=== PATIENT | male | born 1945 | race Caucasian/White ===

== ENCOUNTER 2022-07-20 16:31 | Emergency (ER) | payer OTHER ==
[~2022-07-20] VITALS: Ht 182.9 cm; Wt 91.2 kg
[2022-07-20] MEDS ORDERED: NORVASC10 MG PO (19:25)
[2022-07-20] MEDS ORDERED: VENTOLIN HFA18 GM INH (19:26)
[2022-07-20] MEDS ORDERED: CHLORTHALIDONE25 MG PO (19:26)
[2022-07-20] MEDS ORDERED: PROTONIX40 M1 PO (19:27)
[2022-07-20] MEDS ORDERED: LASIX20 MG PO (19:27)
[2022-07-20] MEDS ORDERED: FAMOTIDINE20 MG PO (19:27)
[2022-07-20] MEDS ORDERED: OMEPRAZOLE20 MG PO (19:28)
[2022-07-20] MEDS ORDERED: SYMBICORT 16010.2 GM INH (19:28)
[2022-07-20] MEDS ORDERED: DULERA 100 MCG/13 GM INH (19:29)
[2022-07-20] MEDS ORDERED: SPIRIVA RESPIMAT4 G1 INH (19:29)
== END 2022-07-20 20:22 | disposition home or self-care (01) ==
LOC: ED 16:31
DX: S61.512A Laceration without foreign body of left wrist, initial encounter (principal); S81.812A Laceration without foreign body, left lower leg, initial encounter; Z23 Encounter for immunization; W26.8XXA Contact with other sharp object(s), not elsewhere classified, initial encounter; I10 Essential (primary) hypertension; J45.909 Unspecified asthma, uncomplicated; K21.9 Gastro-esophageal reflux disease without esophagitis; Z88.0 Allergy status to penicillin; Z79.899 Other long term (current) drug therapy
CPT/HCPCS: 12002; 90471; 90715; 99282-25

== ENCOUNTER 2025-01-01 07:00 | Day surgery (SDC) | payer OTHER ==
[2024-12-25 09:26] VITALS: BP 115/80
[2025-01-01] VITALS (11 sets, daily range): BP systolic 100–110; BP diastolic 65–73
[~2025-01-01] VITALS: Ht 182.9 cm; Wt 88.2 kg
[~2025-01-01 07:00] MED LIST: ALDACTONE25 MG PO; CEFAZOLIN SODIUM 2 GM/20 ML SYR IV SCH; CHLORTHALIDONE25 MG PO; COMBIVENT RESPIM4 GM INH; DIGOXIN125 MCG PO; DULERA 100 MCG/13 GM INH; ELIQUIS5 MG PO; ENTRESTO 24 MG1 EACH PO; FAMOTIDINE20 MG PO; FLOMAX0.4 MG PO; FLONASE ALLERG9.9 ML NAS; IBLOOD GLUCOSE TEST STRIP 1 EA TEST VI PRN; JARDIANCE10 MG PO; KLOR-CON 1010 MEQ PO; LACTATED RINGER'S 1,000 ML IV SCH; LASIX20 MG PO; LASIX40 MG PO; LIDOCAINE HCL 1% 5 ML SDV INJ ONE; METOPROLOL SUC100 MG PO; NORVASC10 MG PO; OMEPRAZOLE20 MG PO; PLAVIX75 MG PO; PROTONIX40 M1 PO; PROTONIX40 MG PO; REFRESH TEARS15 ML OU; SPIRIVA RESPIMAT4 G1 INH; SYMBICORT 16010.2 GM INH; VENTOLIN HFA18 GM INH; VITAMIN B12500 MCG PO; VITAMIN D350 MC3 PO; ZYRTEC10 MG PO; [UNRECOGNIZED DRUG - OTHER] PO
[2025-01-01] MEDS ORDERED: LIPITOR20 MG PO (07:34)
[2025-01-01] MEDS ORDERED: diphenhydrAMINE HCL 25 MG CAP PO PRN (07:45)
[2025-01-01] MEDS ORDERED: LACTATED RINGER'S 1,000 ML IV SCH (07:45)
[2025-01-01] MEDS ORDERED: ondansetron HCL 4 MG/2 ML VIAL IV PRN (07:45)
[2025-01-01] MEDS ORDERED: MORPHINE SULFATE 4 MG/ML VIAL IV PRN (07:45)
[2025-01-01] MEDS ORDERED: TRAMADOL HCL 50 MG TAB PO PRN (07:45)
[2025-01-01] MEDS ORDERED: BUPIVACAINE 0.75% IN DEXTROSE 2 ML AMP ONE (08:56)
[2025-01-01] MEDS ORDERED: SPIRONOLACTONE 25 MG TAB PO SCH (09:00)
[2025-01-01] MEDS ORDERED: PANTOPRAZOLE SODIUM 40 MG TABEC PO SCH (09:00)
[2025-01-01] MEDS ORDERED: METOPROLOL SUCCINATE 100 MG TABCR PO SCH (09:00)
[2025-01-01] MEDS ORDERED: DIGOXIN 125 MCG TAB PO SCH (09:00)
[2025-01-01] MEDS ORDERED: LIDOCAINE HCL 2% 5 ML SDV ONE (09:07)
[2025-01-01] MEDS ORDERED: propofoL 200 MG/20 ML VIAL ONE (09:20)
[2025-01-01] MEDS ORDERED: PHENYLEPHRINE HCL 10 MG/ML VIAL ONE (10:09)
--- NOTE | 2025-01-01 11:22 | NUR ---
REPORT RECEIVED FROM PENG LANZA IN THE ROOM. FIRST SET OF VITAL SIGNS TAKEN AND DOCUMENTED IN THE CHART.
--- NOTE | 2025-01-01 11:30 | NUR ---
PATIENT IS LYING IN BED WITH HOB ELEVATED. PATIENT IS SITTING IN THE CHAIR AT BEDSIDE. FULL ASSESSMENT COMPLETE AND DOCUMENTED IN THE CHART. PATIENT IS ALERT AND ORIENTED TIMES FOUR. PATIENT WITH A PACER/DEFIBRILATOR. IMAGE CONSULTANT STATED HE STOPED ELIQUIS ON 12/28/24. HEART TONES ARE IRREGULAR ON AUSCULTATION. BLE WITH DEPENDENT EDEMA NOTED. RADIAL PULSES ARE STRONG BILATERALLY. SENSATION INTACT WITH NO COMPLAINTS OF NUMBNESS OR TINGLING. PATIENT WITH CAPILLARY REFILL IN THE UPPER AND LOWER EXTREMITIES LESS THAN 3 SECONDS. PATIENT IS ON ROOM AIR WITH HIS PERSONAL CPAP IN THE ROOM. LUNG SOUNDS ARE CLEAR THROUGHOUT. PATIENT IS ON A REGULAR DIET AND BOWEL TONES ARE ACTIVE IN ALL FOUR QUADRANTS. PATIENT LAST BM 01/01/25. PATIENT WITH NO COMPLAINTS OF NAUSEA. CBI IS SHUT OFF. URINE IS LIGHT YELLOW. IV SITE IN THE R FOREARM IS A 20 GAUGE THAT WAS FLUSHED WITH 10 ML NORMAL SALINE. LR IS INFUSING AT 15 ML/HR. PATIENT WITH NO COMPLAINTS OF PAIN. PATIENT SKIN VERY FRAGILE WITH SMALL SCATTERED SCABS NOTED. PATIENT STATED NO FURTHER NEEDS AT THIS TIME. CALL LIGHT AND PERSONAL BELONGINGS ARE WITHIN REACH.
--- NOTE | 2025-01-01 11:41 | NUR ---
01/01/25 1141 Lauren Chapa 1035 PT ARRIVED IN PACU AWAKE WITH NO C/O'S. JOHN WITH CBI RUNNING AND CLEAR DRAINAGE PRESENT. 1045 GLASSES RETURNED TO PT. NO C/O'S. 1100 TALKING TO STAFF. 1122 TO ROOM 122. TRANSFERRED PT FROM STRETCHER TO BED WITH SLIDER SHEET AND 4 PERSON ASSIST. REPORT GIVEN TO RN.
--- NOTE | 2025-01-01 13:33 | NUR ---
ALERT AND ORIENTED IN ROOM. LIVES IN SINGLE LEVEL HOUSE WITH . HAS DME, BUT DOES NOT ELABORATE WHAT DME HE HAS WHEN ASKED. STATES HE DRIVES AT [place] BUT PLANS NOT TO DRIVE FOR A FEW DAYS SINCE HIS PROCEDURE TODAY. STATES HE HAS NO FINANCIAL CONCERNS, ABLE TO PAY FOR UTILITIES, FOOD AND MEDICATIONS WITHOUT DIFFICULTY. PLAN TO RETURN HOME TOMORROW AND FOLLOW-UP WITH DR. RIOS AT SCHEDULED TIME. NO CM NEEDS.
--- NOTE | 2025-01-01 14:30 | NUR ---
FINAL SET OF POST OP VITAL SIGNS TAKEN AND DOCUMENTED IN THE CHART. PATIENT STATED PAIN IS A 7/10 IN THE LOWER ABDOMINAL AREA. PATIENT IS NOT ASKING FOR PAIN MEDICATION AT THIS TIME. PATIENT URINE IN THE JOHN CATHETER DRAINAGE BAG WITH LIGHT YELLOW URINE. PATIENT STATED NO FURTHER NEEDS AT THIS TIME. CALL LIGHT AND PERSONAL BELONGINGS ARE WITHIN REACH.
[2025-01-01] MEDS ORDERED: MAGNESIUM HYDROXIDE/AL HYDROX 30 ML CUP PO PRN (15:30)
--- NOTE | 2025-01-01 16:10 | NUR ---
PATIENT IS LYING IN BED WITH HOB ELEVATED. PATIENT WITH EYES OPEN AND RESPIRATIONS ARE EVEN AND UNLABORED. EYES ARE OPEN AND RESPIRATIONS ARE EVEN AND UNLABORED. TV IS ON. CALL LIGHT AND PERSONAL BELONGINGS ARE WITHIN REACH.
--- NOTE | 2025-01-01 17:42 | NUR ---
PATIENT IS LYING IN BED AND WATCHING TV. CBI REMAINS OFF. PATIENT IS SITTING IN THE RECLINER AT BEDSIDE. URINE IN JOHN CATHETER REAMINS LIGHT YELLOW IN COLOR. PATIENT WITH DINNER TRAY ON THE BEDSIDE TABLE. PATIENT ASKED WHAT HAPPENS WHEN HAVING TO HAVE A BOWEL MOVEMENT. PATIENT EDUCATED ON USING THE BEDPAN. PATIENT EXPRESSED UNDERSTANDING. PATIENT STATED NO FURTHER NEEDS AT THIS TIME. CALL LIGHT AND PERSONAL BELONGINGS WITHIN REACH.
--- NOTE | 2025-01-01 17:55 | NUR ---
medications reconciled using patient's med list and interview
--- NOTE | 2025-01-01 18:06 | NUR ---
CBI PORT ON THE [address] WAY JOHN IS PLUGGED. JOHN CARE COMPLETE. PATIENT DINNER TRAY REMAINS AT BEDSIDE. PATIENT IS SITTING IN THE RECLINER AT BEDSIDE. PATIENT AND FAMILY STATED NO FURTHER NEEDS AT THIS TIME. CALL LIGHT AND PERSONAL BELONGINGS ARE WITHIN REACH.
[2025-01-01] MEDS ORDERED: FUROSEMIDE 20 MG/2 ML VIAL IV ONE (19:00)
--- NOTE | 2025-01-01 19:21 | NUR ---
REPORT RECEIVED FROM DAY SHIFT RN. PT LYING IN BED ALERT AND ORIENTED. DENIES NEEDS. WHITE BOARD UPDATED. CALL LIGHT IN REACH.
--- NOTE | 2025-01-01 20:50 | NUR ---
EVENING ASSESSMENT COMPLETE. SCHEDULED MEDS ADMIN PER EMAR. PT REPORTS LOWER ABD PAIN. PRN FOR PAIN ADMIN. VS AND I&O OBTAINED. CBI REMAINS CLAMPED. URINE IN JOHN TUBING CLEAR YELLOW. NO BLOOD CLOTS NOTED. JOHN CARE DONE AND PT EDUCATION PROVIDED FOR HOME CARE. SCANT AMOUNT RED DRAINAGE NOTED FROM JOHN INSERTION SITE. SCD'S AND CPOX PLACED. PT DENIES QUESTIONS OR CONCERNS. BED ALARM FOR SAFETY. CALL LIGHT IN REACH.
[2025-01-01] MEDS ORDERED: FAMOTIDINE 20 MG/ 2 ML VIAL IV SCH (21:00)
[2025-01-01] MEDS ORDERED: ALBUTEROL INH SCH (21:00)
[2025-01-01] MEDS ORDERED: IPRATROPIUM INH SCH (21:00)
[2025-01-01] MEDS ORDERED: SACUBITRIL/VALSARTAN 1 EACH TABLET PO SCH ×2 (21:00)
[2025-01-01] MEDS ORDERED: MOMETASONE/FORMOTEROL 8.8 GM HFA.AER.AD INH SCH (21:00)
--- NOTE | 2025-01-01 23:32 | NUR ---
PT AWAKE IN BED WITH HOME CPAP IN PLACE. SpO2 LOW 90'S. HR 80'S. URINE IN JOHN TUBING REMAINS LIGHT YELLOW. CBI CLAMPED. ASSISTED TO REPOSITION. NO FURTHER NEEDS.
[2025-01-02 02:02] VITALS: BP 102/70
--- NOTE | 2025-01-02 02:12 | NUR ---
PT RESTING WITH EYES CLOSED. AWAKENS EASILY. VS AND I&O OBTAINED. PT REPORTS LOWER ABD PAIN 6/10. PRN FOR PAIN ADMIN. 2PA TO REPOSITION IN BED WITH PILLOW UNDER LEFT HIP. URINE IN JOHN TUBING LIGHT YELLOW. NO CLOTS NOTED. CBI REMAINS CLAMPED. NO FURTHER NEEDS. CALL LIGHT IN REACH.
[2025-01-02 02:14] VITALS: BP 102/70
--- NOTE | 2025-01-02 03:27 | NUR ---
PT RESTING IN BED WITH EYES CLOSED. RESPIRATIONS EVEN. CALL LIGHT IN REACH.
[2025-01-02 05:03] VITALS: BP 111/67
--- NOTE | 2025-01-02 05:14 | NUR ---
PT REPORTS THE URGE TO VOID. JOHN PATENT WITH CLEAR YELLOW URINE. JOHN FLUSHED WITH 10 ML NS. NO CLOTS NOTED. BLADDER SCANNED FOR <15ML. PT EDUCATION PROVIDED. VS AND I&O OBTAINED. ASSISTED PT TO REPOSITION IN BED. NO FURTHER NEEDS. CALL LIGHT INR EACH.
[2025-01-02] MEDS ORDERED: CEFTRIAXONE SODIUM 1 GM VIAL IV ONE (06:03)
[2025-01-02] MEDS ORDERED: CEFTRIAXONE SODIUM 1 GM in SODIUM CHLORIDE 0.9% 100 ML IV SCH (07:00)
--- NOTE | 2025-01-02 07:27 | NUR ---
REPORT RECEIVED FROM ANGELICA KHOURY
--- NOTE | 2025-01-02 08:02 | NUR ---
UR CLINICAL REVIEW: [facility]- PER [facility] REVIEW MEETS AMBULATORY CRITERIA FOR TURP WITH NEED FOR CBI [facility] EXTENDED STAY 01/01/25 @ 0737 NO AUTH REQUIRED PER [facility] GUIDELINES. RECORDS FAXED FOR REVIEW DISCHARGE TO HOME ANTICIPATED TODAY
[2025-01-02] MEDS ORDERED: CIPRO500 MG PO (08:23)
[2025-01-02] MEDS ORDERED: TRAMADOL HCL50 MG PO (08:26)
[2025-01-02 08:43] VITALS: BP 104/69
--- NOTE | 2025-01-02 09:41 | NUR ---
ALERT AND ORIENTED IN BED. AT BEDSIDE. PATIENT STATES HE IS GOING HOME TODAY AND HAS NO CM NEEDS. AGREES. PLAN TO DC TO HOME TODAY.
--- NOTE | 2025-01-03 12:01 | PATH ---
[facility] [address] [place], [place] [address] Signed SPECIMEN(S): A PROSTATE CHIPS SPECIMEN SOURCE: A. PROSTATE CHIPS CLINICAL HISTORY: BPH with LUTS; prostate cancer. FINAL PATHOLOGIC DIAGNOSIS: Prostate, transurethral resection: - Benign prostatic tissue with glandular and stromal hyperplasia BRP MICROSCOPIC EXAMINATION: Histologic sections of all submitted blocks are examined by light microscopy. These findings, together with the gross examination, support the pathologic diagnosis. GROSS DESCRIPTION: The specimen, labeled and designated "Shyla, W, " and designated on the requisition "prostate chips," is received in formalin is a marley g, 5.8 x 5.2 x 1.0 cm aggregate of pink-marley to flores rubbery soft tissue. The specimen is entirely submitted in (A1-A8). FB (under the direct supervision of a pathologist) The Gross Description was prepared using a voice recognition system. The report was reviewed for accuracy; however, sound-alike word errors, addition and/or deletions may occur. If there is any question about this report, please contact Client Services. ADDITIONAL NOTES: Immunohistochemical and/or in situ hybridization studies if performed in this case included appropriate positive controls that reacted as expected. This test was developed and its performance characteristics determined by [facility]. It has not been cleared or approved by the U.S. Food and Drug Administration. The FDA has determined that such clearance or approval is not necessary. This test is used for clinical purposes. It should not be regarded as investigational or for research. [facility] is certified under the Clinical Laboratory Improvement Amendments of 1988 (CLIA) as qualified to perform high complexity clinical laboratory testing. PATIENT NAME: CAROL COLBERT PATHOLOGY DATE OF : 41 REPORT #: [id number] PHYSICIAN: ASHLEY PATHOLOGY PCP: CASTRO CEBALLOS MD REPORT IS CONFIDENTIAL AND NOT TO BE RELEASED WITHOUT AUTHORIZATION [facility] [address] [place], [place] [address] Signed PERFORMING LABORATORY: Technical component was performed by [facility], [address] [place] [id number] (CLIA# [id number]). Professional interpretation was performed by [facility] [place] [address] (CLIA#: [id number]). Diagnostician: Agustin Fortune MD Pathologist Electronically Signed 01/03/2025 Copies: ~ PATIENT NAME: CAROL COLBERT PATHOLOGY DATE OF : 41 REPORT #: [id number] PHYSICIAN: ASHLEY GENAO PCP: CASTRO CEBALLOS MD REPORT IS CONFIDENTIAL AND NOT TO BE RELEASED WITHOUT AUTHORIZATION
== END 2025-01-02 10:42 | disposition home or self-care (01) ==
LOC: DS 07:00 → MS 11:11 → DS 01-02 10:42
PROVIDERS: ATTEND Urology
DX: N40.1 Benign prostatic hyperplasia with lower urinary tract symptoms (principal); N13.8 Other obstructive and reflux uropathy; R33.9 Retention of urine, unspecified; I25.10 Atherosclerotic heart disease of native coronary artery without angina pectoris; I48.91 Unspecified atrial fibrillation; N18.2 Chronic kidney disease, stage 2 (mild); I50.9 Heart failure, unspecified; K21.9 Gastro-esophageal reflux disease without esophagitis; Z95.5 Presence of coronary angioplasty implant and graft; Z79.01 Long term (current) use of anticoagulants; Z79.02 Long term (current) use of antithrombotics/antiplatelets; Z79.82 Long term (current) use of aspirin; Z79.899 Other long term (current) drug therapy
CPT/HCPCS: 00914; 51700; 88305; 94640; 96360; 96361; 96374; A9270; C1769; J0690; J0696; J2003; J2371; J2704; J7121

== ENCOUNTER 2025-01-11 05:53 | Day surgery (SDC) | payer OTHER ==
[~2025-01-11] VITALS: Ht 182.9 cm; Wt 89.1 kg
[~2025-01-11 05:53] MED LIST changes: -CEFAZOLIN SODIUM 2 GM/20 ML SYR IV SCH; +CIPRO500 MG PO; -IBLOOD GLUCOSE TEST STRIP 1 EA TEST VI PRN; -LACTATED RINGER'S 1,000 ML IV SCH; -LIDOCAINE HCL 1% 5 ML SDV INJ ONE; +LIPITOR20 MG PO; +MIDAZOLAM HCL 5 MG/5 ML VIAL IV PRN; +TRAMADOL HCL50 MG PO; +fentaNYL citrate 100 MCG/2 ML VIAL IV PRN
[2025-01-11 06:09] VITALS: BP 104/59
[2025-01-11] MEDS ORDERED: CEFAZOLIN SODIUM 2 GM/20 ML SYR IV SCH (07:00)
[2025-01-11] MEDS ORDERED: LACTATED RINGER'S 1,000 ML IV SCH (07:00)
[2025-01-11] MEDS ORDERED: IBLOOD GLUCOSE TEST STRIP 1 EA TEST VI PRN (07:00)
[2025-01-11] MEDS ORDERED: LIDOCAINE HCL 1% 5 ML SDV INJ ONE (07:00)
[2025-01-11] MEDS ORDERED: propofoL 200 MG/20 ML VIAL ONE (07:28)
[2025-01-11] MEDS ORDERED: LIDOCAINE HCL 2% 5 ML SDV ONE (07:28)
--- NOTE | 2025-01-11 07:59 | NUR ---
01/11/25 0759 Kika Durand 0750-PATIENT ARRIVED TO PACU ON 4L NC RR EVEN. NEIL SOCIAL WORK THERAPIST DOING JAW TILT TO MAINTAIN OPEN AIRWAY RN RESUMES. PATIENT SNORING. ABDOMEN SOFT. IVF INFUSING. PATIENT HAS BBB WITH PVCS. 0755-PATIENT STARTING TO BECOME REACTIVE OPENING EYES ABLE TO MAINTAIN AIRWAY IN OWN. 4L NC 98% RR EVEN.
[2025-01-11 08:21] VITALS: BP 121/89
--- NOTE | 2025-01-11 10:23 | OR ---
[facility] [address] [place], [place] [address] Signed DATE OF OPERATION: 01/11/2025 SURGEON: Edwina Jasmine MD PREOPERATIVE DIAGNOSES: 1. Small hiatal hernia. 2. 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 3. Mild gastritis. 4. GE junction at 42 cm. 5. Disrupted Hill repair from the remote past. POSTOPERATIVE DIAGNOSES: 1. Small hiatal hernia (43-40 cm). 2. Short-segment Mullen's esophagus (less than or equal to 2 cm). 3. Mild to moderate diffuse gastritis. PROCEDURE: Esophagogastroduodenoscopy with CLOtest and biopsies of antrum GE junction x3. ESTIMATED BLOOD LOSS: None. INDICATIONS: Apollo is an 79-year-old gentleman asked to see me for a followup upper endoscopy. He describes a small hiatal hernia with Mullen's esophagus without dysplasia. He had an upper endoscopy in April [address] Bedoya in [place], [place]. He describes a 2 cm segment of Mullen's esophagus with biopsies negative for dysplasia. He had gastric polyps from his proton pump inhibitor. The GE junction is at 42 cm. He had a very small 1 or 2 cm hiatal hernia. He said there was some gastritis. Of course, he was asked to follow up in three years. He had a similar study in 2018, most likely with Dr. Bedoya. The H pylori was negative. He talked about an upper endoscopy in 2014 with our [facility] in [place], [place]. Again, the Mullen's esophagus. He tells me that he had a Hill repair with Dr. Hickey in the remote past. Three years later, he was out jogging and he completely disrupted to Hill repair. He has had recurrent acid reflux. He found out that he was in atrial fibrillation with heart failure when he was sleeping and quite tired. His ejection fraction was clear down to 10% to 15%. He ended up with two cardiac stents in October 2023. His left ventricular ejection fraction is back up to 50%. He just had an echocardiogram and reviewed that with his cardiac provider Valentine Acosta, who is a nurse practitioner. Initially, he was on aspirin, Plavix, and Eliquis. Now he is only on the Eliquis. He also has sleep Electronically Signed By: EDWINA JASMINE MD 01/11/25 1023 PATIENT NAME: APOLLO COLBERT OPERATIVE REPORT DATE OF : 41 REPORT #: [id number] PHYSICIAN: EDWINA JASMINE MD PCP: CASTRO CEBALLOS MD REPORT IS CONFIDENTIAL AND NOT TO BE RELEASED WITHOUT AUTHORIZATION [facility] [address] [place], [place] [address] Signed apnea requiring a CPAP mask. He had his pacemaker defibrillator placed in April [address] Gil[address] Johnson[address]. Johnson saw him in July and said everything was going well. Oswaldo was able to go hunting with his grandson last fall. He said everything went well except he had some claudication in his legs. He said after his diuresis his legs are no longer swollen. He was asked to come see me as a local general surgeon for repeat upper endoscopy and biopsies for the Mullen's esophagus. I had met with Oswaldo in the office and reviewed the above findings with him. I gave him a pamphlet on upper endoscopy as well as Mullen's esophagus. He understands Mullen's esophagus increases the chance of esophageal cancer by 11 times. Consequently, those patients only come about every three years with biopsies. There is risk including, but not limited to gas bloating, crampy abdominal pain, bleeding, perforation requiring surgery, and missed diagnosis. Also because of his significant medical history, he needs monitored anesthesia care with propofol infusion. He understands he needs a ride home afterwards. He said that would be his . He had expressed understanding and wished to proceed. DESCRIPTION OF PROCEDURE: Oswaldo was taken into our endoscopy suite and placed in a supine semi-recumbent position. A bite block was utilized for the case. He was given monitored anesthesia care propofol infusion per our nurse forensic nurse. The adult gastroscope was introduced and advanced quite readily down out into the duodenum. The duodenum and pyloric bulb were unremarkable. His stomach showed mild to moderate diffuse gastritis. We took a biopsy of the antrum for CLOtest as well as pathologic review. No ulcerations. Upon retroflexion of scope I can see his hiatal hernia. It measured out roughly 43 back to 40 cm. It took a bit to see this short-segment Mullen's esophagus. It is probably less than 2 cm. We took three circumferential biopsies in this area. There was no distal esophagitis. No inflammatory changes around the Z-line. The middle and upper esophagus were unremarkable. After this, the gas was suctioned out and the gastroscope removed. Oswaldo tolerated the procedure quite well. RECOMMENDATIONS: I will see Oswaldo back in my office in 7 to 14 days to review his results. Edwina Jasmine MD ALB/MODL /[id number] Electronically Signed By: EDWINA JASMINE MD 01/11/25 1023 PATIENT NAME: APOLLO COLBERT OPERATIVE REPORT DATE OF : 41 REPORT #: [id number] PHYSICIAN: EDWINA JASMINE MD PCP: CASTRO CEBALLOS MD REPORT IS CONFIDENTIAL AND NOT TO BE RELEASED WITHOUT AUTHORIZATION [facility] [address] [place], [place] [address] Signed cc: Valentine Acosta, MD Castro Duenas MD Copies: EDWINA JASMINE MD, MICAIAH MATTHEW MD ~ Electronically Signed By: EDWINA JASMINE MD 01/11/25 1023 PATIENT NAME: APOLLO COLBERT OPERATIVE REPORT DATE OF : 41 REPORT #: [id number] PHYSICIAN: EDWINA JASMINE MD PCP: CASTRO CEBALLOS MD REPORT IS CONFIDENTIAL AND NOT TO BE RELEASED WITHOUT AUTHORIZATION
--- NOTE | 2025-01-12 10:41 | PATH ---
[facility] [address] [facility] [place], [place] [address] Signed SPECIMEN(S): A ANTRUM BIOPSY SPECIMEN(S): B GE JUNCTION SPECIMEN SOURCE: A. ANTRUM BIOPSY B. GE JUNCTION CLINICAL HISTORY: Pre-: Hiatal hernia with Mullen's esophagus. Post: Gastritis, SM hiatal hernia, Mullen's FINAL PATHOLOGIC DIAGNOSIS: A. Antrum, biopsy: - Minimal chronic antral gastritis with vascular congestion, negative for active inflammation or intestinal metaplasia. - No H. pylori bacteria are detected by HE stain. B. GE junction, biopsies: - Chronic reflux esophagogastritis with intestinal metaplasia, negative for dysplasia. AMB MICROSCOPIC EXAMINATION: Histologic sections of all submitted blocks are examined by light microscopy. These findings, together with the gross examination, support the pathologic diagnosis. GROSS DESCRIPTION: A. The specimen, labeled and designated "Shyla, Flip, antrum biopsy," is received in formalin and consists of one marley soft tissue fragment, 0.6 cm. Entirely submitted in (A1). B. The specimen, labeled and designated "Shyla, W, GE junction," is received in formalin and consists of four marley soft tissue fragments, ranging from 0.2-0.3 cm. Entirely submitted in (B1). AB (under the direct supervision of a pathologist) The Gross Description was prepared using a voice recognition system. The report was reviewed for accuracy; however, sound-alike word errors, addition and/or deletions may occur. If there is any question about this report, please contact Client Services. ADDITIONAL NOTES: Immunohistochemical and/or in situ hybridization studies if performed in this PATIENT NAME: CAROL COLBERT PATHOLOGY DATE OF : 41 REPORT #: [id number] PHYSICIAN: ASHLEY GENAO PCP: CASTRO CEBALLOS MD REPORT IS CONFIDENTIAL AND NOT TO BE RELEASED WITHOUT AUTHORIZATION [facility] [address] [place], [place] [address] Signed case included appropriate positive controls that reacted as expected. This test was developed and its performance characteristics determined by [facility]. It has not been cleared or approved by the U.S. Food and Drug Administration. The FDA has determined that such clearance or approval is not necessary. This test is used for clinical purposes. It should not be regarded as investigational or for research. [facility] [facility] is certified under the Clinical Laboratory Improvement Amendments of 1988 (CLIA) as qualified to perform high complexity clinical laboratory testing. PERFORMING LABORATORY: Technical component was performed by [facility], [address] [place] [address] (CLIA# [id number]). Professional interpretation was performed by [facility] [address] [place] [id number] Diagnostician: Danyell Guzman MD Pathologist Electronically Signed 01/12/2025 Copies: ~ PATIENT NAME: CAROL COLBERT PATHOLOGY DATE OF : 41 REPORT #: [id number] PHYSICIAN: ASHLEY GENAO PCP: CASTRO CEBALLOS MD REPORT IS CONFIDENTIAL AND NOT TO BE RELEASED WITHOUT AUTHORIZATION
== END 2025-01-11 08:30 | disposition home or self-care (01) ==
LOC: DS 05:53
PROVIDERS: ATTEND Colon & Rectal Surgery
PROC: 0DB68ZX Excision of Stomach, Via Natural or Artificial Opening Endoscopic, Diagnostic (ICD-10-PCS; 2025-01-11)
PROC: 0DB48ZX Excision of Esophagogastric Junction, Via Natural or Artificial Opening Endoscopic, Diagnostic (ICD-10-PCS; principal; 2025-01-11 07:30)
DX: K29.50 Unspecified chronic gastritis without bleeding (principal); K44.9 Diaphragmatic hernia without obstruction or gangrene; K22.70 Barrett's esophagus without dysplasia; K21.9 Gastro-esophageal reflux disease without esophagitis; J45.909 Unspecified asthma, uncomplicated; I25.10 Atherosclerotic heart disease of native coronary artery without angina pectoris; I48.91 Unspecified atrial fibrillation; I50.9 Heart failure, unspecified; N18.2 Chronic kidney disease, stage 2 (mild); C61 Malignant neoplasm of prostate; F10.99 Alcohol use, unspecified with unspecified alcohol-induced disorder; G47.33 Obstructive sleep apnea (adult) (pediatric); Z99.89 Dependence on other enabling machines and devices; Z79.899 Other long term (current) drug therapy
CPT/HCPCS: 00731; 36415; 87077; 88305; J0690; J2003; J2704; J7121

== ENCOUNTER 2025-10-05 09:18 | Emergency (ER) | payer OTHER ==
[~2025-10-05] VITALS: Ht 182.9 cm; Wt 88.8 kg
--- OUTSIDE RECORDS SUMMARY | ~2025-10-05 | XMS | Continuity of Care Document ---
Demographics + + + | Address | [address] | | | [place] [address] | + + + | Preferred Language | Unknown | + + + | Marital Status | | + + + | Pentecostalism Affiliation | Unknown | + + + | Race | White | + + + | Ethnic Group | Not or | + + + Author + + + | Author | [facility] | + + + | Organization | [facility] | + + + | Address | [address] | | | [place] [address] | + + + | Phone | | + + + Care Team Providers + + + + | Care Straddle Bug Operator Name | Role | Phone | + + + + Unavailable | Unavailable | + + + + Allergies No information. Encounters No information. Functional Status No information. Immunizations No information. Medications + + + + | date | description | facility | + + + + | (no date) | IPRATROPIUM/ALBUTEROL | [facility] | | | SULFATE | [facility] | + + + + | (no date) | MOMETASONE/FORMOTEROL | [facility] | | | | [facility] | + + + + | (no date) | APIXABAN | [facility] | | | | [facility] | + + + + | (no date) | EMPAGLIFLOZIN | [facility] | | | | [facility] | + + + + | (no date) | Sacubitril/Valsartan | [facility] | | | | [facility] | + + + + | (no date) | SACUBITRIL/VALSARTAN | [facility] | | | | [facility] | + + + + | (no date) | DIGOXIN | [facility] | | | | [facility] | + + + + | (no date) | FUROSEMIDE | [facility] | | | | [facility] | + + + + | (no date) | FUROSEMIDE | [facility] | | | | [facility] | + + + + | (no date) | PANTOPRAZOLE SODIUM | [facility] | | | | [facility] | + + + + | (no date) | Cyanocobalamin (Vitamin | [facility] | | | B-12) | [facility] | + + + + | (no date) | POTASSIUM CHLORIDE | [facility] | | | | [facility] | + + + + | (no date) | Cholecalciferol (Vitamin | [facility] | | | D3) | [facility] | + + + + | (no date) | TAMSULOSIN HCL | [facility] | | | | [facility] | + + + + | (no date) | METOPROLOL SUCCINATE | [facility] | | | | [facility] | + + + + Problems No information. Procedures No information. Results/Labs No information. Social History + + + + | date | description | facility | + + + + | (no date) | Unknown if ever smoked | [facility] | | | | [facility] | + + + + Vital Signs No information."
[~2025-10-05 09:18] MED LIST changes: -MIDAZOLAM HCL 5 MG/5 ML VIAL IV PRN; -fentaNYL citrate 100 MCG/2 ML VIAL IV PRN
[2025-10-05 09:43] LABS: BASOPHILS 0.9 % (0.2-1.2); EOSINOPHILS 2.9 % (0.8-7.0); LYMPHOCYTES 14.4 % (21.8-53.1); MCH 31.5 PG (25.7-32.2); MCHC 33.6 g/dL (32.3-36.5); MCV 93.9 fL (79.0-92.2); MONOCYTES 12.4 % (5.3-12.2); NEUTROPHILS 67.6 % (34.0-67.9); RBC 4.89 M/uL (4.63-6.08)
[2025-10-05 10:15] LABS: ALT (SGPT) 37.0 U/L (14-59); AST (SGOT) 37.0 U/L (15-37); GLOMERULAR FILTRATION RATE,EST 60.0 mL/min (>60); PROTEIN, TOTAL 6.9 g/dL (6.4-8.2); UREA NITROGEN 25.0 mg/dL (7-18)
[2025-10-05 12:13] VITALS: BP 107/75
== END 2025-10-05 12:10 | disposition short-term general hospital (02) ==
LOC: ED 09:18
PROVIDERS: Emergency Medicine
DX: I11.0 Hypertensive heart disease with heart failure (principal); I50.9 Heart failure, unspecified; J45.909 Unspecified asthma, uncomplicated; K21.9 Gastro-esophageal reflux disease without esophagitis; Z91.030 Bee allergy status; Z79.01 Long term (current) use of anticoagulants; Z79.899 Other long term (current) drug therapy
CPT/HCPCS: 36415; 71045; 80053; 80162; 83735; 84484; 85025; 93005; 93010; 99285-25